=== PATIENT | male | born 1955 | race Caucasian/White ===

== ENCOUNTER 2022-08-21 15:27 | Emergency (ER) | payer OTHER ==
[2022-08-21 16:11] LABS: Absolute Lymphocytes (CBC) 1.7 K/uL (0.7-4.9); Hematocrit 37.7 % (39.6-49.0); Lymphocytes % 22.4 % (15.3-44.8); MCV 81.2 fL (80-100); MPV 7.3 fL (7.6-11.3); RBC Red Blood Cell Count 4.64 M/uL (4.33-5.43)
[2022-08-21] MEDS ORDERED: NA CHLORIDE 0.9% 1,000 ML ONE (16:11)
[2022-08-21 16:35] LABS: Albumin 4.2 g/dL (3.4-5.0); Bilirubin Total 0.2 mg/dL (0.2-1.0); Potassium 5.1 mmol/L (3.5-5.1); Protein, Total 7.9 g/dL (6.4-8.2); Thyroid Stimulating Hormone 3.05 uIU/mL (0.358-3.740); Troponin High Sensitivity 23.8 pg/mL (<58.9)
--- NOTE | 2022-08-21 16:58 | RAD REPORT ---
EXAM DESCRIPTION: Meagan Single View08/21/2022 4:02 pm CLINICAL HISTORY: CHEST PAIN COMPARISON: No comparisons TECHNIQUE: Portable AP view of the chest. FINDINGS: The lungs are clear. No pneumothorax or effusion. The cardiomediastinal contours are unrem arkable. IMPRESSION: No acute cardiopulmonary process.
[2022-08-21 17:09] LABS: Urine Blood Negative (Negative); Urine Glucose Negative (Negative); Urine Protein Negative (Negative); Urine pH 5.5 (5.0-7.0)
[2022-08-21 19:12] VITALS: TEMP 97
[2022-08-21 19:13] VITALS: BP 139/69; O2SAT 97
--- NOTE | 2022-08-22 12:41 | EKG ---
Test Date: 2022-08-21 Test Time: 16:11:25 Geographic Information System Analyst: SIENNA MEASUREMENT RESULTS: Intervals: Rate: 61 WV: 138 QRSD: 100 QT: 428 QTc: 430 [place]: P: 23 WV: 138 QRS: -35 T: -2 INTERPRETIVE STATEMENTS: Normal sinus rhythm Left axis deviation Moderate voltage criteria for LVH, may be normal variant Cannot rule out Septal infarct, age undetermined Abnormal ECG No previous ECG available for comparison Electronically Signed On 08-22-22 12:38:57 CDT by Fercho Power
--- NOTE | 2022-09-01 17:16 | ER ---
Nurse's Notes [facility] Name: Raza Gates Age: 67 yrs Sex: Male : 1955 Arrival Date: 08/21/2022 Time: 15:28 Bed 17 Private MD: Diagnosis: Abnormal results of kidney function studies;Dehydration;Syncope Near Presentation: 08/21 15:35 Chief complaint: Patient states: "white outs for 2-3 months". Was at [facility] and they ko1 sent me over for low blood pressure 70's/40's. Coronavirus screen: At this time, the client does not indicate any symptoms associated with coronavirus-19. Ebola Screen: No symptoms or risks identified at this time. Initial Sepsis Screen: Does the patient meet any 2 criteria? No. Patient's initial sepsis screen is negative. Does the patient have a suspected source of infection? No. Patient's initial sepsis screen is negative. Risk Assessment: Do you want to hurt yourself or someone else? Patient reports no desire to harm self or others. Onset of symptoms is unknown. 15:35 Method Of Arrival: Ambulatory ko1 15:35 Acuity: JEREMIAH 2 ko1 Triage Assessment: 15:38 General: Appears in no apparent distress. comfortable, ill, Behavior is calm, ko1 cooperative, appropriate for age. Pain: Denies pain. Historical: - Allergies: 15:38 Sulfa (Sulfonamide Antibiotics); ko1 - PMHx: 15:38 Diabetes mellitus; Hypertensive disorder; ko1 - Immunization history:: Adult Immunizations unknown. - Social history:: Smoking status: Patient reports the use of cigarette tobacco products. Assessment: 16:30 Reassessment: Patient appears in no apparent distress at this time. Patient and/or kr3 family updated on plan of care and expected duration. Pain level reassessed. Patient is alert, oriented x 3, equal unlabored respirations, skin warm/dry/pink. 17:53 Reassessment: Patient appears in no apparent distress at this time. Patient and/or kr3 family updated on plan of care and expected duration. Pain level reassessed. Patient is alert, oriented x 3, equal unlabored respirations, skin warm/dry/pink. Vital Signs: 15:35 BP 83 / 60; Pulse 66; Resp 18; Temp 97; Pulse Ox 100% ; Weight 80.29 kg; Height 5 ft. ko1 11 in. ; 16:30 BP 114 / 66; Pulse 63; Resp 17; Pulse Ox 99% on R/A; kr3 17:30 BP 139 / 69; Pulse 62; Resp 17; Pulse Ox 97% on R/A; kr3 15:35 Body Mass Index 24.69 (80.29 kg, 180.34 cm) ko1 ED Course: 15:28 Patient arrived in ED. rg4 15:32 Marshall Vaughn MD is Attending Physician. bs3 15:37 Triage completed. ko1 15:38 Arm band placed on left wrist. Patient placed in an exam room, Patient notified of wait ko1 time. 16:02 Cortisol Sent. mb9 16:02 TSH Sent. mb9 16:02 CBC with Diff Sent. mb9 16:02 NT PRO-BNP Sent. mb9 16:02 Troponin HS Sent. mb9 16:02 Inserted saline lock: 18 gauge in right forearm, using aseptic technique. Blood mb9 collected. 16:04 XRAY Chest (1 view) In Process Unspecified. EDMS 16:15 EKG done, by ED staff, reviewed by Marshall Vaughn MD. 16:23 Ro Damon, RN is Primary Nurse. kr3 17:15 Urine collected: clean catch specimen, cloudy. Administered Medications: 16:23 Drug: NS 0.9% IV 1000 ml Route: IV; Rate: 1 bolus; Site: right forearm; kr3 17:55 Follow up: Response: No adverse reaction; IV Status: Completed infusion; IV Intake: kr3 1000ml Intake: 17:55 IV: 1000ml; Total: 1000ml. kr3 Outcome: 17:26 Discharge ordered by . bs3 17:55 Patient left the ED. kr3 Signatures: Dispatcher [employer] EDMS Marychuy Marc rg4 Zofia Baeza Ro Damon, RN RN kr3 Marshall Vaughn MD MD bs3 Selam Brooks RN RN ko1 Jada Coughlin RN RN mb9
--- NOTE | 2022-09-01 17:17 | EDPHYS ---
Physician Documentation [facility] Name: Raza Gates Age: 67 yrs Sex: Male : 1955 Arrival Date: 08/21/2022 Time: 15:28 Bed 17 Private MD: ED Physician Marshall Vaughn HPI: 08/21 15:47 This 67 yrs old Male presents to ER via Ambulatory with complaints of Low BP, bs3 weakness and feeling like he is going to "white out". 15:47 59-year-old male history of diabetes he is on an CAITLIN inhibitor which he thinks is for bs3 protection of his heart/kidneys and denies high blood pressure presents with intermittent feelings like he is going to pass out his symptoms of been ongoing for approximately 2 weeks he notes that all his life he has had intermittent loose stools but he has had increased diarrhea when this started he notes that his stools were not black but he then started taking Pepto-Bismol and then his stools turned black he denies any bright red blood per rectum denies any fevers chills cough shortness of breath his symptoms are worse when he gets off and on his truck he does feel little bit winded no leg swelling, never had this before, he also feels generally tired. No cough, no sick contacts. Historical: - Allergies: 15:38 Sulfa (Sulfonamide Antibiotics); ko1 - PMHx: 15:38 Diabetes mellitus; Hypertensive disorder; ko1 - Immunization history:: Adult Immunizations unknown. - Social history:: Smoking status: Patient reports the use of cigarette tobacco products. ROS: 15:47 Constitutional: Negative for fever, chills bs3 15:47 All other systems are negative. Exam: 15:47 Constitutional: This is a well developed, well nourished patient who is awake, alert, bs3 and in no acute distress. Head/Face: Normocephalic, atraumatic. ENT: mmm, no posterior phyarngeal erythema Neck: Trachea midline, no thyromegaly, no neck stiffness Chest/axilla: Normal chest wall appearance and motion. Nontender with no deformity. No lesions are appreciated. Cardiovascular: Regular rate and rhythm with a normal S1 and S2. symmetric pulses in upper extremities Respiratory: Lungs have equal breath sounds bilaterally, clear to auscultation, no respiratory distress Abdomen/GI: Soft, non-tender, no rebound or guarding Skin: Warm, dry with normal turgor. Normal color with no rashes, no lesions, and no evidence of cellulitis. MS/ Extremity: Pulses equal, no cyanosis. Neurovascular intact. Full, normal range of motion. Neuro: Awake and alert, GCS 15, oriented to person, place, time, and situation. Cranial nerves II-XII grossly intact. Motor strength 5/5 in all extremities. Sensory grossly intact. Psych: Awake, alert, with orientation to person, place and time. Behavior, mood, and affect are within normal limits. 16:16 Normal sinus rhythm at 61 left axis deviation LVH QTc 430 as interpreted by myself bs3 Vital Signs: 15:35 BP 83 / 60; Pulse 66; Resp 18; Temp 97; Pulse Ox 100% ; Weight 80.29 kg; Height 5 ft. ko1 11 in. ; 16:30 BP 114 / 66; Pulse 63; Resp 17; Pulse Ox 99% on R/A; kr3 17:30 BP 139 / 69; Pulse 62; Resp 17; Pulse Ox 97% on R/A; kr3 15:35 Body Mass Index 24.69 (80.29 kg, 180.34 cm) ko1 MDM: 15:32 Patient medically screened. bs3 15:47 Differential Diagnosis Possible adrenal insufficiency possible thyroid dysfunction bs3 possible diabetes possible hypovolemia related to diabetes possible anemia, electrolyte abnormality possible cardiac etiology although outside EKG did not show any blocks we will check labs hydrate thyroid function and reassess. 16:31 Data reviewed: vital signs, nurses notes. ED course: Blood pressure improved when bs3 patient arrived in his room. 17:13 ED course: Labs notable for elevated creatinine, low GFR, slightly elevated proBNP but bs3 no symptoms consistent with heart failure, no anemia, normal glucose, xr negative for pneumonia. . 17:25 ED course: Patient reassessed feeling well here tolerating oral intake telemetry shows bs3 normal sinus rhythm at 74 with no arrhythmia as interpreted by myself at 525 he remained asymptomatic discussed all the results with the patient he was advised to follow-up with cardiology primary care and nephrology as well as [facility] strict return precautions given. 08/21 15:43 Order name: CMP; Complete Time: 17:09 bs3 08/21 15:43 Order name: Lipase; Complete Time: 17:09 bs3 08/21 15:43 Order name: TSH; Complete Time: 17:09 bs3 08/21 15:43 Order name: Cortisol bs3 08/21 17:09 Order name: Urine Dipstick-Ancillary; Complete Time: 17:14 EDMS 08/21 15:43 Order name: Labs collected and sent; Complete Time: 16:02 bs3 08/21 15:43 Order name: O2 Per Protocol; Complete Time: 16:02 bs3 08/21 15:43 Order name: O2 Sat Monitoring; Complete Time: 16:02 bs3 08/21 16:31 Order name: Urine Dipstick-Ancillary (obtain specimen); Complete Time: 17:14 bs3 08/21 15:43 Order name: IV Saline Lock; Complete Time: 16:02 bs3 08/21 15:43 Order name: EKG - Nurse/Tech; Complete Time: 16:15 bs3 08/21 15:43 Order name: Cardiac monitoring; Complete Time: 16:15 bs3 08/21 15:43 Order name: EKG; Complete Time: 15:43 bs3 08/21 15:43 Order name: XRAY Chest (1 view); Complete Time: 17:09 bs3 08/21 15:43 Order name: Troponin HS; Complete Time: 17:09 bs3 08/21 15:43 Order name: NT PRO-BNP; Complete Time: 17:09 bs3 08/21 15:43 Order name: CBC with Diff; Complete Time: 17:09 bs3 Administered Medications: 16:23 Drug: NS 0.9% IV 1000 ml Route: IV; Rate: 1 bolus; Site: right forearm; kr3 17:55 Follow up: Response: No adverse reaction; IV Status: Completed infusion; IV Intake: kr3 1000ml Disposition Summary: 08/21/22 17:26 Discharge Ordered Location: Home bs3 Problem: new bs3 Symptoms: are unchanged bs3 Condition: Fair bs3 Diagnosis - Abnormal results of kidney function studies bs3 - Dehydration bs3 - Syncope Near bs3 Followup: bs3 - With: Private Physician - When: 2 - 3 days - Reason: Re-evaluation by your physician Discharge Instructions: - Acute Kidney Injury, Adult bs3 - Diarrhea, Adult bs3 - Dehydration, Adult bs3 - Discharge Summary Sheet bs3 Forms: - Prescription Opioid Use bs3 - Antibiotic Education bs3 - Thank You Letter bs3 - Medication Reconciliation Form bs3 Signatures: Dispatcher [employer] EDMS Ro Damon RN RN kr3 Marshall Vaughn MD MD bs3 Selam Brooks RN RN ko1 Corrections: (The following items were deleted from the chart) 16:32 15:47 Constitutional: This is a well developed, well nourished patient who is awake, bs3 alert, and in no acute distress. Head/Face: Normocephalic, atraumatic. ENT: mmm, no posterior phyarngeal erythema Neck: Trachea midline, no thyromegaly, no neck stiffness Chest/axilla: Normal chest wall appearance and motion. Nontender with no deformity. No lesions are appreciated. Cardiovascular: Regular rate and rhythm with a normal S1 and S2. symmetric pulses in upper extremities Respiratory: Lungs have equal breath sounds bilaterally, clear to auscultation, no respiratory distress Abdomen/GI: Soft, non-tender, no rebound or guarding Skin: Warm, dry with normal turgor. Normal color with no rashes, no lesions, and no evidence of cellulitis. MS/ Extremity: Pulses equal, no cyanosis. Neurovascular intact. Full, normal range of motion. Neuro: Awake and alert, GCS 15, oriented to person, place, time, and situation. Cranial nerves II-XII grossly intact. Motor strength 5/5 in all extremities. Sensory grossly intact. Psych: Awake, alert, with orientation to person, place and time. Behavior, mood, and affect are within normal limits. bs3
== END 2022-08-21 17:55 | disposition home or self-care (01) ==
LOC: ER 15:27
DX: R55 Syncope and collapse (principal); E86.0 Dehydration; R94.4 Abnormal results of kidney function studies; I10 Essential (primary) hypertension; E11.9 Type 2 diabetes mellitus without complications; Z88.2 Allergy status to sulfonamides
CPT/HCPCS: 96361; 93005; 85025; 36415; 84443; 81003; 84484; 83690; 80053; 82533; 83880; 71045; 96360; 99284; J7030

== ENCOUNTER 2023-01-08 09:19 | Emergency (ER) | payer OTHER ==
[2023-01-08] MEDS ORDERED: NA CHLORIDE 0.9% 1,000 ML ONE (10:13)
[2023-01-08 10:20] LABS: Absolute Lymphocytes (CBC) 1.3 K/uL (0.7-4.9); Hematocrit 42.2 % (39.6-49.0); MCV 82.6 fL (80-100)
--- NOTE | 2023-01-08 10:35 | RAD REPORT ---
EXAM DESCRIPTION: Meagan Single View01/08/2023 10:19 am CLINICAL HISTORY: Hypotension COMPARISON: August 2022 FINDINGS: A vague nodular opacity left lung base The remainder of the lungs appear clear of acute infiltrate. The heart is normal size IMPRESSION: A vague nodular opacity left lung base may represent confluence of pulmonary vessels, ni pple shadow or probably less likely a pulmonary nodule. Follow-up PA and lateral chest series in 3 months recommended for re-evaluation
[2023-01-08 10:55] LABS: ALT/SGPT 33 U/L (16-61); Albumin 4.5 g/dL (3.4-5.0); Alkaline Phosphatase 88 U/L (45-117); BUN Blood Urea Nitrogen 29 mg/dL (7-18); Bicarbonate 28 mEq/L (21-32); Bilirubin Total 0.3 mg/dL (0.2-1.0); Creatine Phosphokinase 43 U/L (39-308); Glomerular Filtration Rate 57 ml/min (=/>90); Glucose Level 276 mg/dL (74-106); NT PRO-BNP 355 pg/mL (<125); Protein, Total 8.7 g/dL (6.4-8.2); Sodium Level 133 mEq/L (136-145); Troponin High Sensitivity 28.4 pg/mL (<58.9)
[2023-01-08 10:56] LABS: AST/SGOT 18 U/L (15-37); Bilirubin Direct < 0.1 mg/dL (0-0.2); Bilirubin Indirect, Calculated ND mg/dL (0.2-0.8); Magnesium 2.1 mg/dL (1.6-2.4); Potassium 4.6 mEq/L (3.5-5.1)
--- NOTE | 2023-01-08 12:41 | EDPHYS ---
Physician Documentation [facility] Name: Raza Gates Age: 67 yrs Sex: Male : 1955 Arrival Date: 01/08/2023 Time: 09:19 Bed 16 Private MD: ED Physician Dev Kim HPI: 01/08 10:45 This 67 yrs old Male presents to ER via Ambulatory with complaints of low bp. rt 10:45 Patient with history of hypotension started on midodrine recently since to the ED with rt 4 months of feeling weak, having reported low blood pressure readings, specifically when he stands up. Patient noticed that his symptoms have worsened over the past 24 hours, noted that her blood pressure in the 60s over 40s when he stood up at home. Denies any pain, however he does state that he is somewhat shaky. Denies other acute complaints, symptoms are moderate severity, no other aggravating alleviating factors.. Historical: - Allergies: 09:36 Sulfa (Sulfonamide Antibiotics); iw - Home Meds: 09:36 glipizide 10 mg Oral tablet 2 times per day [Active]; sertraline 100 mg oral tablet iw twice a day [Active]; atorvastatin 40 mg oral tablet daily [Active]; midodrine 5 mg oral tablet 2 times per day [Active]; metformin 1,000 mg oral tablet 2 times per day [Active]; empagliflozin 25 mg oral tablet daily [Active]; - PMHx: 09:36 diabetes mellitus; Hypertensive disorder; iw - Immunization history:: Pneumococcal vaccine is up to date, Flu vaccine is up to date. - Social history:: Smoking status: Patient reports use of chewing tobacco. - Family history:: not pertinent. ROS: 10:45 Constitutional: Negative for fever, chills, and weight loss, Cardiovascular: Negative rt for chest pain, palpitations, and edema, Respiratory: Negative for shortness of breath, cough, wheezing, and pleuritic chest pain, Abdomen/GI: Negative for abdominal pain, nausea, vomiting, diarrhea, and constipation, MS/Extremity: Negative for injury and deformity, Skin: Negative for injury, rash, and discoloration, Psych: Negative for depression, anxiety, suicide ideation, homicidal ideation, and hallucinations. 10:45 Neuro: Positive for weakness, Negative for altered mental status. Exam: 10:45 Constitutional: This is a well developed, well nourished patient who is awake, alert, rt and in no acute distress. Head/Face: Normocephalic, atraumatic. Chest/axilla: Normal chest wall appearance and motion. Nontender with no deformity. No lesions are appreciated. Cardiovascular: Regular rate and rhythm with a normal S1 and S2. No gallops, murmurs, or rubs. Normal PMI, no JVD. No pulse deficits. Respiratory: Lungs have equal breath sounds bilaterally, clear to auscultation and percussion. No rales, rhonchi or wheezes noted. No increased work of breathing, no retractions or nasal flaring. Abdomen/GI: Soft, non-tender, with normal bowel sounds. No distension or tympany. No guarding or rebound. No evidence of tenderness throughout. Skin: Warm, dry with normal turgor. Normal color with no rashes, no lesions, and no evidence of cellulitis. MS/ Extremity: Pulses equal, no cyanosis. Neurovascular intact. Full, normal range of motion. Neuro: Awake and alert, GCS 15, oriented to person, place, time, and situation. Cranial nerves II-XII grossly intact. Motor strength 5/5 in all extremities. Sensory grossly intact. Cerebellar exam normal. Normal gait. Psych: Awake, alert, with orientation to person, place and time. Behavior, mood, and affect are within normal limits. 10:45 ECG was reviewed by the Attending Physician. Vital Signs: 09:33 BP 129 / 68; Pulse 62; Resp 16; Temp 98; Pulse Ox 97% on R/A; Weight 80.74 kg; Height 5 iw ft. 8 in. ; 09:48 BP 145 / 82 LA Supine (auto/reg); Pulse 67; Resp 18; Pulse Ox 99% ; ko1 09:49 BP 128 / 74 LA Sitting (auto/reg); Pulse 68; Resp 18; Pulse Ox 98% ; ko1 09:50 BP 102 / 64 LA Standing (auto/reg); Pulse 76; Resp 18; Pulse Ox 98% ; ko1 12:02 BP 122 / 76; Pulse 62; Resp 18; Pulse Ox 100% ; ko1 13:00 BP 114 / 74; Pulse 58; Resp 18; Pulse Ox 99% ; ko1 13:00 BP 123 / 71; Pulse 64; Resp 16; Pulse Ox 99% ; ko1 15:55 BP 122 / 82; Pulse 66; Resp 16; Pulse Ox 99% ; ko1 09:33 Body Mass Index 27.06 (80.74 kg, 172.72 cm) iw MDM: 09:34 Patient medically screened. rt 13:15 Differential Diagnosis Near syncope, anemia, orthostatic hypotension. Data reviewed: rt vital signs, nurses notes, lab test result(s), EKG, radiologic studies. Consideration of Admission/Observation Patient was admitted/placed on observation. Management of patient was discussed with the following: Hospitalist: Agrees to admit. I considered the following discharge prescriptions or medication management in the emergency department Medications were administered in the Emergency Department. See MAR. Test considered but Not performed: CT: No focal neurodeficits, CT scan of the head not indicated. Care significantly affected by the following chronic conditions: Diabetes. Counseling: I had a detailed discussion with the patient and/or guardian regarding: the historical points, exam findings, and any diagnostic results supporting the discharge/admit diagnosis, lab results, radiology results, the need for further work-up and treatment in the hospital. Response to treatment: the patient's symptoms have mildly improved after treatment. 01/08 09:51 Order name: Basic Metabolic Panel; Complete Time: 11:30 rt 01/08 09:51 Order name: CBC with Diff; Complete Time: 10:41 rt 01/08 09:51 Order name: LFT's; Complete Time: 11:30 rt 01/08 09:51 Order name: Magnesium; Complete Time: 11:30 01/08 09:51 Order name: NT PRO-BNP; Complete Time: 11:30 rt 01/08 09:51 Order name: Troponin HS; Complete Time: 11:30 01/08 09:51 Order name: TSH; Complete Time: 11:30 01/08 09:51 Order name: CPK; Complete Time: 11:30 rt 01/08 09:51 Order name: XRAY Chest (1 view); Complete Time: 10:41 rt 01/08 09:51 Order name: EKG; Complete Time: 09:52 rt 01/08 09:51 Order name: Cardiac monitoring; Complete Time: 09:54 rt 01/08 09:51 Order name: EKG - Nurse/Tech; Complete Time: 10:07 rt 01/08 09:51 Order name: IV Saline Lock; Complete Time: 10:11 rt 01/08 09:51 Order name: Labs collected and sent; Complete Time: 10:11 rt 01/08 09:51 Order name: O2 Per Protocol; Complete Time: 09:51 rt 01/08 09:51 Order name: O2 Sat Monitoring; Complete Time: 09:51 rt 01/08 09:51 Order name: Orthostatics; Complete Time: 09:57 rt EC:45 Rate is 65 beats/min. Rhythm is regular, Normal Sinus Rhythm with LAFB, LVH with repol rt abnormality. OR interval is normal. QRS interval is normal. QT interval is normal. Interpreted by me. Administered Medications: 10:11 Drug: NS 0.9% IV 1000 ml Route: IV; Rate: 1 bolus; Site: right antecubital; ko1 Disposition Summary: 01/08/23 12:41 Transfer Ordered Transfer Location: [facility] rt Reason: Higher level of care rt Condition: Stable rt Problem: new rt Symptoms: have improved rt Accepting Physician: (01/08/23 16:05) angie Diagnosis - Orthostatic hypotension rt Forms: - Medication Reconciliation Form rt - SBAR form rt Signatures: Dispatcher [employer] EDBrittanie Sawant RN RN iw Oliver, Kathy, RN RN ko1 Dev Kim MD MD rt Corrections: (The following items were deleted from the chart) 16:05 12:41 rt ko1
--- NOTE | 2023-01-08 12:41 | ER ---
Nurse's Notes [facility] Name: Raza Gates Age: 67 yrs Sex: Male : 1955 Arrival Date: 01/08/2023 Time: 09:19 Bed 16 Private MD: Diagnosis: Orthostatic hypotension Presentation: 01/08 09:33 Chief complaint: Patient states: his BP has been low for past 4 months, he started iw midodrine a week ago but is still getting low BP readings at home, he feels weak, his vision whites out when he stands up, he had an echo two days ago, also has not been eating. Coronavirus screen: At this time, the client does not indicate any symptoms associated with coronavirus-19. Ebola Screen: Patient negative for fever greater than or equal to 101.5 degrees Fahrenheit, and additional compatible Ebola Virus Disease symptoms Patient denies exposure to infectious person. Patient denies travel to an Ebola-affected area in the 21 days before illness onset. No symptoms or risks identified at this time. Initial Sepsis Screen: Does the patient meet any 2 criteria? No. Patient's initial sepsis screen is negative. Does the patient have a suspected source of infection? Yes: No. Patient's initial sepsis screen is negative. Risk Assessment: Do you want to hurt yourself or someone else? Patient reports no desire to harm self or others. Onset of symptoms. :33 Method Of Arrival: Ambulatory iw 09:33 Acuity: JEREMIAH 3 iw Historical: - Allergies: 09:36 Sulfa (Sulfonamide Antibiotics); iw - Home Meds: 09:36 glipizide 10 mg Oral tablet 2 times per day [Active]; sertraline 100 mg oral tablet iw twice a day [Active]; atorvastatin 40 mg oral tablet daily [Active]; midodrine 5 mg oral tablet 2 times per day [Active]; metformin 1,000 mg oral tablet 2 times per day [Active]; empagliflozin 25 mg oral tablet daily [Active]; - PMHx: 09:36 diabetes mellitus; Hypertensive disorder; iw - Immunization history:: Pneumococcal vaccine is up to date, Flu vaccine is up to date. - Social history:: Smoking status: Patient reports use of chewing tobacco. - Family history:: not pertinent. Screenin:32 [facility] ED Fall Risk Assessment (Adult) History of falling in the last 3 months, ko1 including since admission No falls in past 3 months (0 pts) Confusion or Disorientation No (0 pts) Intoxicated or Sedated No (0 pts) Impaired Gait No (0 pts) Mobility Assist Device Used No (0 pt) Altered Elimination No (0 pt) Score/Fall Risk Level 0 - 2 = Low Risk Oriented to surroundings, Maintained a safe environment, Educated pt \T\ family on fall prevention, incl call for assistance when getting out of bed, Assessed \T\ reinforced patient's understanding of fall precautions, Provided non-skid footwear, Hourly rounding (assess needs \T\ fall precautionary measures) done, Used ambulatory aids as needed (educated on \T\ assisted with), Used gait belt as appropriate. Abuse screen: Denies threats or abuse. Denies injuries from another. Nutritional screening: No deficits noted. Tuberculosis screening: No symptoms or risk factors identified. Assessment: 10:32 General: Appears in no apparent distress. comfortable, Behavior is cooperative, ko1 appropriate for age, anxious. Pain: Denies pain. Neuro: Reports dizziness. Cardiovascular: Reports lightheadedness. Respiratory: No deficits noted. GI: No deficits noted. : No deficits noted. EENT: No deficits noted. Derm: No deficits noted. Musculoskeletal: No deficits noted. Vital Signs: 09:33 BP 129 / 68; Pulse 62; Resp 16; Temp 98; Pulse Ox 97% on R/A; Weight 80.74 kg; Height 5 iw ft. 8 in. ; 09:48 BP 145 / 82 LA Supine (auto/reg); Pulse 67; Resp 18; Pulse Ox 99% ; ko1 09:49 BP 128 / 74 LA Sitting (auto/reg); Pulse 68; Resp 18; Pulse Ox 98% ; ko1 09:50 BP 102 / 64 LA Standing (auto/reg); Pulse 76; Resp 18; Pulse Ox 98% ; ko1 12:02 BP 122 / 76; Pulse 62; Resp 18; Pulse Ox 100% ; ko1 13:00 BP 114 / 74; Pulse 58; Resp 18; Pulse Ox 99% ; ko1 13:00 BP 123 / 71; Pulse 64; Resp 16; Pulse Ox 99% ; ko1 15:55 BP 122 / 82; Pulse 66; Resp 16; Pulse Ox 99% ; ko1 09:33 Body Mass Index 27.06 (80.74 kg, 172.72 cm) iw ED Course: 09:23 Patient arrived in ED. im 09:25 Dev Kim MD is Attending Physician. rt 09:26 Selam Brooks, RN is Primary Nurse. ko1 09:36 Triage completed. iw 09:38 Arm band placed on. iw 10:11 CPK Sent. ko1 10:11 TSH Sent. ko1 10:11 Basic Metabolic Panel Sent. ko1 10:11 CBC with Diff Sent. ko1 10:11 LFT's Sent. ko1 10:11 Magnesium Sent. ko1 10:11 NT PRO-BNP Sent. ko1 10:11 Troponin HS Sent. ko1 10:21 XRAY Chest (1 view) In Process Unspecified. EDMS 10:32 Patient has correct armband on for positive identification. Bed in low position. Call ko1 light in reach. Provided Education on: NA. Client placed on continuous cardiac and pulse oximetry monitoring. NIBP monitoring applied. hospital monitor on. Door closed. Noise minimized. Warm blanket given. 12:10 initiated transfer to [facility], faxed chart to ER as requested by transfer center. bd 15:32 pt accepted in transfer to [facility] by Dr Wayne Nguyen, admin approval given by Dr fernando Nguyen, pt to be seen in ER. 15:55 No provider procedures requiring assistance completed. Patient transferred, IV remains ko1 in place. Administered Medications: 10:11 Drug: NS 0.9% IV 1000 ml Route: IV; Rate: 1 bolus; Site: right antecubital; ko1 Medication: 15:55 VIS not applicable for this client. ko1 Outcome: 12:41 ER care complete, transfer ordered by . rt 15:55 Transferred by private ambulance [facility]. to [facility] ko1 Transfer form completed. X-rays sent w/ patient. 15:55 Condition: stable 15:55 Discharge instructions given to patient, family, Instructed on the need for transfer, Demonstrated understanding of instructions. 16:05 Patient left the ED. ko1 Signatures: Dispatcher [employer] EDMS Naty Tang Irene, RN RN iw Selam Brooks, RN RN ko1 Dev Kim MD MD rt Verito Adamson im
[2023-01-08 16:09] VITALS: TEMP 98
[2023-01-08 16:16] VITALS: O2SAT 99
[2023-01-08 16:17] VITALS: BP 122/82
--- NOTE | 2023-01-08 18:50 | EKG ---
Test Date: 2023-01-08 Test Time: 10:08:46 Car Hiker: JUAN M MEASUREMENT RESULTS: Intervals: Rate: 65 NH: 162 QRSD: 98 QT: 414 QTc: 430 [place]: P: 8 NH: 162 QRS: -51 T: -32 INTERPRETIVE STATEMENTS: Normal sinus rhythm Left anterior fascicular block Voltage criteria for left ventricular hypertrophy Cannot rule out Septal infarct, age undetermined Abnormal ECG Compared to ECG 08/21/2022 16:11:25 Left anterior fascicular block now present Left-axis deviation no longer present Myocardial infarct finding still present Electronically Signed On 01-08-23 18:47:52 CDT by Fercho Power
== END 2023-01-08 16:05 ==
LOC: ER 09:19
DX: I95.1 Orthostatic hypotension (principal); R53.1 Weakness; E11.9 Type 2 diabetes mellitus without complications; I10 Essential (primary) hypertension; F17.220 Nicotine dependence, chewing tobacco, uncomplicated; Z88.2 Allergy status to sulfonamides
CPT/HCPCS: 93005; 85025; 80048; 36415; 83735; 82550; 80076; 84443; 84484; 83880; 71045; 99285; J7030